=== PATIENT | female | born 1980 | race Hispanic/Latino ===

== ENCOUNTER 2021-10-02 08:26 | Emergency (ER) | payer BC ==
[~2021-10-02] VITALS: Ht 152.4 cm; Wt 93.0 kg
[2021-10-02 08:33] VITALS: BP 152/76
[2021-10-02] MEDS ORDERED: METHADONE HCL 10 MG TABLET PO ONE (09:00)
[2021-10-02] MEDS ORDERED: GABAPENTIN 300 MG CAPSULE PO SCH (09:30)
== END 2021-10-02 09:44 | disposition home or self-care (01) ==
LOC: EDH 08:26
DX: F11.23 Opioid dependence with withdrawal (principal); E03.9 Hypothyroidism, unspecified; G89.29 Other chronic pain; M54.9 Dorsalgia, unspecified; M25.561 Pain in right knee; M25.562 Pain in left knee; Z90.49 Acquired absence of other specified parts of digestive tract; Z98.84 Bariatric surgery status

== ENCOUNTER 2021-10-13 08:06 | Emergency (ER) | payer BC ==
[~2021-10-13] VITALS: Ht 152.4 cm; Wt 90.7 kg
[2021-10-13 08:08] VITALS: BP 112/54
[2021-10-13] MEDS ORDERED: GABAPENTIN 100 MG CAPSULE ONE (09:14)
[2021-10-13] MEDS ORDERED: METHADONE HCL 10 MG TABLET PO ONE (09:30)
== END 2021-10-13 09:30 | disposition home or self-care (01) ==
LOC: EDH 08:06
DX: F11.23 Opioid dependence with withdrawal (principal); F32.A Depression, unspecified; E03.9 Hypothyroidism, unspecified; G89.29 Other chronic pain; Z90.49 Acquired absence of other specified parts of digestive tract; Z98.890 Other specified postprocedural states